=== PATIENT | male | born 1980 ===

== ENCOUNTER 2020-09-05 08:00 | Outpatient (REF) | payer OTHER, SELFPAY ==
[2020-09-05 09:35] LABS: Alanine Aminotransferase 21 U/L (0-40); Albumin Level 4.6 g/dL (3.5-5.0); Alkaline Phosphatase 49 U/L (39-117); Anion Gap 10 (12-20); Aspartate Amino Transferase 16 U/L (5-37); Bilirubin Total 0.7 mg/dL (0.0-1.0); Blood Urea Nitrogen 13 mg/dL (9-16); Calcium 9.4 mg/dL (8.4-10.2); Carbon Dioxide 28 mmol/L (22-29); Chloride 104 mmol/L (96-108); Cholesterol 174 mg/dL; Estimated Glomerular Filt Rate > 60; Glucose Fasting 94 mg/dL (60-99); HDL Cholesterol 32 mg/dL; LDL Cholesterol Calculated 113 mg/dl; Potassium 4.4 mmol/L (3.3-5.1); Sodium 138 mmol/L (135-145); Total Protein 7.4 g/dL (6.5-8.0); Triglycerides 147 mg/dL
[2020-09-11 13:57] LABS: Vitamin D 25-OH, D2 <4 ng/mL; Vitamin D 25-OH, D3 9 ng/mL; Vitamin D 25-OH, Total 9 ng/mL (30-100)
== END 2020-09-05 08:01 | disposition home or self-care (01) ==
LOC: HO.LAB 08:00
PROVIDERS: PCP Internal Medicine; Visit Provider Internal Medicine
DX: E55.9 Vitamin D deficiency, unspecified (principal); E78.5 Hyperlipidemia, unspecified; Z82.49 Family history of ischemic heart disease and other diseases of the circulatory system
CPT/HCPCS: 36415; 80053; 80061; 82306

== ENCOUNTER → 2020-11-14 15:15 | Outpatient (BNVA) | payer OTHER, SELFPAY | PROVIDERS: PCP Internal Medicine; Visit Provider Urology ==

== ENCOUNTER → 2021-05-07 13:37 | Outpatient (BNVA) | payer OTHER, SELFPAY | PROVIDERS: PCP Internal Medicine; Visit Provider Urology ==

== ENCOUNTER 2024-07-12 09:45 | Outpatient (REF) | payer OTHER, SELFPAY ==
[2024-07-12 11:29] LABS: Alanine Aminotransferase 28 U/L (0-40); Albumin Level 4.2 g/dL (3.5-5.0); Alkaline Phosphatase 44 U/L (39-117); Anion Gap 9 (12-20); Aspartate Amino Transferase 22 U/L (5-37); Bilirubin Total 0.3 mg/dL (0.0-1.0); Blood Urea Nitrogen 7 mg/dL (9-16); Carbon Dioxide 28 mmol/L (22-29); Chloride 109 mmol/L (96-108); Cholesterol 186 mg/dL (<200); Estimated Glomerular Filt Rate > 60; Glucose Fasting 102 mg/dL (60-99); HDL Cholesterol 39 mg/dL (>40); LDL Cholesterol Calculated 116 mg/dL (<100); Potassium 3.8 mmol/L (3.3-5.1); Sodium 142 mmol/L (135-145); Total Protein 7.2 g/dL (6.5-8.0); Triglycerides 156 mg/dL (<150)
[2024-07-12 11:47] LABS: Vitamin D 25-OH Total 9.4 ng/mL (>30)
== END 2024-07-12 09:46 | disposition home or self-care (01) ==
LOC: HO.LAB 09:45
PROVIDERS: PCP Internal Medicine; Visit Provider Internal Medicine
DX: Z00.00 Encounter for general adult medical examination without abnormal findings (principal); J06.9 Acute upper respiratory infection, unspecified; M54.6 Pain in thoracic spine; E78.5 Hyperlipidemia, unspecified; E55.9 Vitamin D deficiency, unspecified; Z13.30 Encounter for screening examination for mental health and behavioral disorders, unspecified; Z28.21 Immunization not carried out because of patient refusal
CPT/HCPCS: 36415; 80053; 80061; 82306; 96127

== ENCOUNTER 2024-07-12 16:15 | Outpatient (AMB) | payer OTHER, SELFPAY ==
--- NOTE | 2024-07-12 16:26 | A.OFFPC_ITS ---
Vital Signs 07/12/24 16:27 Height 5 ft 3 in Weight 149 lb BMI 26.4 BP 118/80 Blood Pressure Location Lt brachial Position Sitting Intake Visit Reasons: Physical Exam Intake Note: Patient here for a physical exam [employer] Required: No Accompanied by: Self / Same As Patient Allergies No Known Allergies [No Known Allergies*] Allergy (Verified 07/12/24 16:44) Medication List - Last Reconciled 07/12/24 by Miley Aquino MD cholecalciferol (vitamin D3) 25 mcg PO DAILY naproxen 500 mg PO BID omeprazole 20 mg PO DAILY 90 days Tobacco use date assessed: 07/12/24 Dental Screening Dental Screen Date: 07/12/24 Did you have a dental visit in the last 12 months?: No Did you have a dental problem in the last 6 months where you did not have access to dental care?: No Was dental information given to patient?: Patient has dentist HPI HPI Comments History of Present Illness Details The patient is a 44-year-old male presenting for his routine annual physical examination. During the visit, it was noted that the patient has a significant vitamin D deficiency, with a level of 9 ng/mL, although all other laboratory results were within normal limits. He has a history of gastroesophageal reflux disease for which he takes omeprazole. He also experiences musculoskeletal discomfort, particularly in the back and knee region, which has been attributed to osteoscoliosis. He lost a small spinal physical piece, likely related to his musculoskeletal issues, though specific details were not mentioned in the conversation. Treatment with a muscle relaxant has been considered to alleviate muscle tension, with instructions to use this medication at night due to its sedative effects. - Recommended supplementation with vitam in D due to deficiency level at 9 ng/mL. - Encouraged dietary intake of vitamin D -rich foods such as salmon and exposure to sunlight. - Discussed importance of regular monito ring for GERD and maintaining current medication regimen. [facility] Medical History Chronic GERD Physical exam Back pain Hypovitaminosis D Family history of early CAD Surgical History History of varicocele History of hernia repair Family History Father Throat cancer Mother Hypertension CVD (cardiovascular disease) Maternal Grandmother No problems noted. Sister No problems noted. Sister No problems noted. Son No problems noted. Daughter No problems noted. Social History Housing: Apartment Alcohol intake: current Alcohol intake frequency: a few times a month Alcohol type: beer Patient Tobacco Use Status: Former Tobacco user Tobacco use type: Cigarette Cigarettes Per Day: 14 e-Cigarette/Vaping Use: Currently Using Second Hand Smoke Exposure: No service: No Current occupational status: employed Current occupational exposures/hazards: No Cognitive needs: No Hearing needs: No Vision needs: No Questionnaire PHQ-9 Over the last 2 weeks, how often have you been bothered by any of the following problems? 1. Little interest or pleasure in doing things: not at all 2. Feeling down, depressed, or hopeless: not at all 3. Trouble falling or staying asleep, or sleeping too much: not at all 4. Feeling tired or having little energy: not at all 5. Poor appetite or overeating: not at all 6. Feeling bad about yourself - or that you are a failure or have let yourself or your family down: not at all 7. Trouble concentrating on things, such as reading the newspaper or watching television: not at all 8. Moving or speaking so slowly that other people could have noticed. Or the opposite - being so fidgety or restless that you have been moving around a lot more than usual: not at all 9. Thoughts that you would be better off or of hurting yourself in some way: not at all Total score: 0 Depression Screening Interpretation: Negative Depression Screening Done: Yes 68486 - PHQ-9 Billing: Yes Source: Developed by Drs. Pancho Gee, Deborah Willams, Trenton Saeed and colleagues, with an educational johnnie from [employer]. Thrive Questionnaire Date Thrive assessed: 07/12/24 I am a: Patient What is your living situation today?: I have a steady place to live Within the past 12 months, did the food you bought not last and you didn't have the money to get more?: I choose not to answer this question Within the past 12 months, did you worry whether your food would run out before you got money to buy more?: Never true Do you have trouble paying for medicines?: No Do you have trouble getting transportation to medical appointments?: No Do you have trouble paying your heating and electricity bill?: No Do you have trouble taking care of your child, family member or friend?: No Do you have trouble with day-to-day activities such as bathing, preparing meals, shopping, managing finances, etc.?: No Are you currently unemployed and looking for a job?: No Are you interested in more education?: No Please select the resources that you would like help with: None Currently or been in a relationship where the following occur: No concerns reported THRIVE Score: 0 AUDIT C Alcohol Use Questionnaire (AUDIT-C) 1. How often do you have a drink containing alcohol?: 2-4 times a month 2. How many drinks containing alcohol do you have on a typical day when you are drinking?: 3 or 4 3. How often do you have six or more drinks on one occasion?: Never Total Score: 3 Score Reviewed/Action Taken: No MARIA A-7 AMB Questionnaire MARIA A-7 Date MARIA A - 7 assessed: 07/12/24 Feeling nervous, anxious, or on edge: 0 = Not at all Not being able to stop or control worryin = Not at all Worrying too much about different things: 0 = Not at all Trouble relaxin = Not at all Being so restless that it is hard to sit still: 0 = Not at all Becoming easily annoyed or irritable: 0 = Not at all Feeling afraid as if something awful might happen: 0 = Not at all Total MARIA A-7 score (0-4 normal; 5-9 mild; 10-14 moderate; 15-21 severe): 0 Source: Developed by Drs. Pancho Gee, Deobrah Willams, Trenton Saeed and colleagues, with an educational johnnie from [employer]. MARIA A-7 Assessment Billing MARIA A-7 Assessment Tool: MARIA A-7 Assessment 92875 Review of Systems Const All systems reviewed & are unremarkable except as noted in HPI and below Card Denies chest pain at rest, Denies chest pain with activity, Denies edema, Denies irregular heart rhythm, Denies claudication, Denies dyspnea, Denies dyspnea on exertion, Denies orthopnea, Denies paroxysmal nocturnal dyspnea and Denies slow heart rate Resp Denies cough, Denies dyspnea and Denies dyspnea on exertion GI Denies abdominal pain, Denies change in bowel habits, Denies excessive flatus, Denies nausea and Denies vomiting Denies urinary hesitancy, Denies urinary incontinence and Denies urinary urgency Physical exam (Primary Care) Vital Signs: Last Vital Signs BP 118/80 07/12/24 16:27 BMI result Body Mass Index 26.4 Tobacco/Smoking Status: Tobacco use Status Tobacco use date assessed 07/12/24 07/12/24 16:32 Patient Tobacco Use Status Former Tobacco user 07/12/24 16:32 Tobacco use type Cigarette 07/12/24 16:32 e-Cigarette/Vaping Use Currently Using 07/12/24 16:32 PHQ-9: PHQ-9 Score PHQ-9: Total score 0 07/12/24 16:52 Depression Screening Interpretation: Negative Thrive Assessment: Date of Thrive Assessment Date Thrive assessed 07/12/24 07/12/24 16:32 Currently or been in a relationship where the following occur: No concerns reported HENMT Head: Yes normal to inspection, Yes normocephalic and Yes atraumatic Ears: external ears normal Eyes General: appearance normal, both eyes and all related structures Eyelids: Yes eyelids normal Conjunctivae: conjunctivae normal Neck Neck: Yes normal visual inspection and Yes supple Resp Effort & Inspection: normal respiratory effort Auscultation: clear to auscultation bilaterally Cardio Jugular venous distension: no JVD Rate: regular rate Rhythm: regular rhythm Heart sounds: S1 normal heart sound present and S2 normal heart sound present GI Inspection: Yes normal to inspection Palpation (GI): Soft to palpation and nontender Auscultation: normal bowel sounds Skin General skin exam: no rashes or lesions noted Neuro General: no focal motor deficits Extrem General: Yes full ROM Psych Appearance: grossly normal Office Procedures Flu Questionnaire Does the patient have a severe egg allergy?: No Immunizations Fluarix Triv [id number] (PF) 45 mcg (15 mcg x 3)/0.5 mL IM syringe Performing Provider: Miley Aquino MD [facility] [place] [facility] Documented (not given) by: NAYELI Miller on 07/12/24 16:32 Reason Not Given: Patient Refused Coding Level of Care Code Est Pt Level 3 (08448) Est Pt Prev Care 40-64y(35493) Diagnoses Physical exam Z00.00 URI (upper respiratory infection) J06.9 Thoracic spine pain M54.6 Additional Codes MARIA A-7 Assessment Billing - MARIA A-7 Assessment Tool: MARIA A-7 Assessment 88736 ([id number]) PHQ-9 - 21167 - PHQ-9 Billing: Yes ([id number]) Time Spent (min) 34 Assessment & Plan Assessment & Plan (1) Physical exam: Code(s): Z00.00 - Encounter for general adult medical examination without abnormal findings Category: Medical (2) URI (upper respiratory infection): Code(s): J06.9 - Acute upper respiratory infection, unspecified Category: Medical (3) Thoracic spine pain: Code(s): M54.6 - Pain in thoracic spine Category: Medical Plan - Continue current omeprazole regimen for GERD. - Prescribe vitamin D supplements to address deficiency. - Recommend muscle relaxants for nighttime use to relieve musculoskeletal discomfort associated with osteoscoliosis. - Consider orthopedic evaluation if symptoms persist or worsen. Patient was informed and verbally consented to the use of an ambient scribe for clinic note documentation during this visit. We discussed the low vitamin D levels and the need for supplementation. I advised on dietary sources of vitamin D and benefits of sunlight exposure. We also talked about using current GERD medications effectively to manage symptoms. I explained the symptoms associated with osteoscoliosis and proposed a muscle relaxant at night to manage physical discomfort. The patient understood and consented to the recommended treatments. I also suggested returning for follow- up if symptoms persist or worsen. Orders: Orders SARS-CoV2/FLU/RSV Today R09.89 - Other specified symptoms and signs involving the circulatory and respiratory systems Influenza [id number] Immunization Today Z23 - Encounter for immunization XR thoracic spine 2V Today M54.6 - Pain in thoracic spine Medications: New cholecalciferol (vitamin D3) 50 mcg PO DAILY 90 caps 1RF 90 days Refilled omeprazole 20 mg PO DAILY 90 caps 0RF 90 days K21.9 - Gastro-esophageal reflux disease without esophagitis Patient Instructions: - Begin taking vitamin D supplements as directed to improve your deficiency. - Maintain dietary intake of vitamin D-rich foods such as salmon. - Use omeprazole daily to manage GERD symptoms. - Take the prescribed muscle relaxant at night to help ease muscle discomfort. - Seek further evaluation if your symptoms do not improve.
[2024-07-12 16:27] VITALS: BP 118/80; BMI 26.4
== END 2024-07-12 17:00 | disposition home or self-care (01) ==
PROVIDERS: PCP Internal Medicine; Visit Provider Internal Medicine
DX: Z00.00 Encounter for general adult medical examination without abnormal findings (principal); J06.9 Acute upper respiratory infection, unspecified; M54.6 Pain in thoracic spine; Z23 Encounter for immunization

== ENCOUNTER 2024-07-13 09:49 | Outpatient (REF) | payer OTHER, SELFPAY ==
--- NOTE | ~2024-07-13 | XR_ITS ---
CLINICAL HISTORY: M54.6 - Pain in thoracic spine 3 views thoracic spine Comparison: None Findings: Moderate rightward curvature of the lower thoracic spine. No acute fractures or dislocation. Multilevel disc space narrowing and endplate osteophyte formation, as well as facet hypertrophy. IMPRESSION: No acute findings. This document has been electronically signed by: Luna Gutiérrez MD on 07/13/2024 17:47:16
[2024-07-13 11:09] LABS: Influenza A PCR NEGATIVE (Negative); Influenza B PCR NEGATIVE (Negative); Resp Syncy Virus RNA Qual PCR NEGATIVE (Negative); SARS COV2 PCR INHOUSE POSITIVE (Negative)
== END 2024-07-13 09:50 | disposition home or self-care (01) ==
LOC: HO.XRAY 09:49
PROVIDERS: PCP Internal Medicine; Visit Provider Internal Medicine
DX: U07.1 COVID-19 (principal); R09.89 Other specified symptoms and signs involving the circulatory and respiratory systems; M54.6 Pain in thoracic spine
CPT/HCPCS: 0241U; 72070

== ENCOUNTER → 2024-07-13 10:22 | Outpatient (BNV) | payer OTHER, SELFPAY | PROVIDERS: PCP Internal Medicine; Visit Provider Radiology Diagnostic Radiology | DX: M54.6 Pain in thoracic spine (principal) | CPT/HCPCS: 72070 ==